=== PATIENT | male | born 1955 | race Hispanic/Latino ===

== ENCOUNTER → 2023-02-20 | Outpatient (CLI) | payer MEDICARE ==
[~2023-02-20] MED LIST: AMLODIPINE BESYL5 MG PO; ASPIR-LOW81 MG PO; COREG12.5 MG PO; CYCLOBENZAPRINE10 MG PO; HYDROCHLOROTH12.5 MG PO; IOPAMIDOL 370 MG/ML 100 ML INFUS..BTL INJ ONE; LISINOPRIL10 MG PO; METFORMIN HCL500 MG PO; PRAVASTATIN SOD20 MG PO
== END ==
LOC: CT 09:25
PROVIDERS: ATTEND Internal Medicine
DX: R04.2 Hemoptysis (principal); Z87.891 Personal history of nicotine dependence
CPT/HCPCS: 36415; 71260; 82565; 84520; Q9967